=== PATIENT | female | born 1970 | race African-American/Black ===

== ENCOUNTER 2020-01-22 18:25 | Emergency (ER) | payer OTHER ==
[~2020-01-22] VITALS: Ht 160 cm; Wt 70.3 kg
[2020-01-22] MEDS ORDERED: MOBIC15 MG PO (19:44)
[2020-01-22] MEDS ORDERED: MEDROLDOSEPACK PO (19:52)
[2020-01-22 20:10] VITALS: BP 123/71
== END 2020-01-22 20:11 | disposition home or self-care (01) ==
LOC: ER 18:25
DX: S40.012A Contusion of left shoulder, initial encounter (principal); Z88.8 Allergy status to other drugs, medicaments and biological substances; X58.XXXA Exposure to other specified factors, initial encounter; Y93.89 Activity, other specified; Y92.89 Other specified places as the place of occurrence of the external cause; Y99.8 Other external cause status